=== PATIENT | male | born 1945 | race Caucasian/White ===

== ENCOUNTER 2021-12-10 07:34 | Outpatient (CLI) | payer MEDICARE, SELFPAY ==
--- NOTE | 2021-12-10 | EST_ITS ---
Patient Info Name: Sam Gerber Age: 76 years : 1945 Gender: Male Ht: 65 in Wt: 198 lbs BSA: 2.06 m2 HR: 57 bpm BP: 146 / 81 mmHg Heart Rhythm: Sinus Rhythm Exam Date: 12/10/2021 8:44 AM Exam Location: [facility] Stress Patient Status: Outpatient Admit Date: 12/10/2021 Staff Ordering Physician: Abdelrahman Sullivan APRN Attending Provider: Abdelrahman Sullivan APRN Exercise Technologist: Arabella Madrigal CT Exercise Physician: Maxx Browne DO Exam Type: CA stress mathieu w NM Study Info Indications R07.9 - Chest pain, unspecified A regadenoson stress test was performed. Summary 1. 1. Negative lexiscan stress test for ischemic ST changes by ECG criteria. 2. 2. Baseline hypertension. 3. 3. Nuclear scan to follow and will be reported separately. Please correlate with it. 4. 4. Patient informed of the above results. Protocol: Lexiscan Stress ECG Details Stage: REST Duration (min): 0 min : 54 sec HR (bpm): 56 SBP (mmHg): 146 DBP (mmHg): 81 Stage: REST Duration (min): 8 min : 41 sec HR (bpm): 55 SBP (mmHg): 146 DBP (mmHg): 81 Stage: STAGE 1 Duration (min): 1 min : 0 sec HR (bpm): 69 SBP (mmHg): 151 DBP (mmHg): 85 Stage: RECOVERY Duration (min): 1 min : 0 sec HR (bpm): 77 SBP (mmHg): 151 DBP (mmHg): 85 Stage: RECOVERY Duration (min): 2 min : 0 sec HR (bpm): 73 SBP (mmHg): 151 DBP (mmHg): 85 Stage: RECOVERY Duration (min): 3 min : 0 sec HR (bpm): 71 SBP (mmHg): 144 DBP (mmHg): 80 Stage: RECOVERY Duration (min): 3 min : 2 sec HR (bpm): 70 SBP (mmHg): 144 DBP (mmHg): 80 Rest HR: 55 bpm Peak HR: 81 bpm Rest Sys BP: 146 mmHg Peak Sys BP: 151 mmHg Max Pred HR: 146 bpm % Max Pred HR: 55 % Target HR: 124 bpm Max RPP: 12,231 bpm*mmHg Termination Reason: Completed protocol Cardiac Symptoms: Shortness of breath Total Time: 1 min : 0 sec Rest Jacobs BP: 81 mmHg Peak Jacobs BP: 85 mmHg Total Dose: 0.4 mg Resting ECG Sinus rhythm, borderline T wave in anterolat/high lat leads. Stress ECG No ST changes. Arrhythmias None. Report Signatures
--- NOTE | ~2021-12-10 | NM_ITS ---
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 The patient was infused intravenously with Lexiscan (regadenoson). Then, 33.7 mCi Tc99m tetrofosmin (Myoview) was administered intravenously, and stress images were obtained. Data was sanju nstructed into short axis and horizontal and vertical long axis SPECT images. Gated SPECT images were also obtained. COMPARISON: None. FINDINGS: There is moderate sized reversible perfusion abnormality of the anterior, septal and apical duron, consistent with ischemia. There is no segmental wall motion abnormality. Left ventricular e jection fraction measures 78%. IMPRESSION: 1. Moderate sized reversible perfusion abnormality of the anterior, septal and apical duron of the le ft ventricle, consistent with ischemia.. 2. Normal left ventricular ejection fraction measuring 78%. Reviewed, dictated and finalized at location B. IZE MACHINE OPERATOR IMPRESSION: 1. Moderate sized reversible perfusion abnormality of the anterior, septal and apical duron of the left ventricle, consistent with ischemia.. 2. Normal left ventricular ejection fraction measuring 78%.
== END 2021-12-10 07:35 | disposition home or self-care (01) ==
LOC: ANHCARD 07:41
PROVIDERS: PCP Internal Medicine; Visit Provider Nurse Practitioner
DX: R07.9 Chest pain, unspecified (principal); R94.39 Abnormal result of other cardiovascular function study
CPT/HCPCS: 78452; 93017; A9502; J2785

== ENCOUNTER → 2022-01-12 02:03 | Outpatient (CLI) | payer MEDICARE, SELFPAY ==
[2022-01-12 11:49] LABS: SARS-CoV-2 RNA PCR Negative
== END ==
PROVIDERS: PCP Internal Medicine; Visit Provider Internal Medicine Cardiovascular Disease
DX: Z01.812 Encounter for preprocedural laboratory examination (principal); Z20.822 Contact with and (suspected) exposure to COVID-19
CPT/HCPCS: C9803; U0003; U0005

== ENCOUNTER 2022-01-15 01:29 | Day surgery (SDC) | payer MEDICARE, SELFPAY ==
[2022-01-14 15:34] VITALS: BMI 32.0
[2022-01-15] VITALS (9 sets, daily range): BP systolic 127–148; BP diastolic 60–77; PULSE 46–61; RESP 12–22; TEMP 36.4; O2SAT 97–99; BMI 30.9
[2022-01-15] MEDS: SODIUM CHLORIDE 0.9% IV 500 ML 100 ML IV CONT (08:20)
[2022-01-15 08:36] LABS: Basophils Absolute Auto 0.1 K/mm3 (0.0-0.1); Basophils Percent Auto 1.3 % (0.2-1.2); Eosinophils Absolute Auto 0.6 K/mm3 (0-0.3); Eosinophils Percent Auto 6.5 % (0-4.4); Hematocrit 47.8 % (42.0-52.0); Hemoglobin 16.2 g/dL (14.0-18.0); Immature Granulocyte Absolute 0.03 K/mm3 (0.00-0.031); Immature Granulocyte Percent A 0.3 % (0-0.5); Lymphocytes Absolute Auto 2.49 K/mm3 (0.9-3.2); Mean Corpuscular HGB Conc 33.9 g/dl (32-36); Mean Corpuscular Hemoglobin 31.8 pg (26-34); Mean Corpuscular Volume 93.9 fl (80-100); Mean Platelet Volume 11.5 fl (7.4-10.4); Monocytes Absolute Auto 0.7 K/mm3 (0.1-0.6); Monocytes Percent Auto 7.5 % (2.6-8.5); Neutrophils Absolute Auto 5.6 K/mm3 (1.3-6.7); Neutrophils Percent Auto 58.4 % (45.5-73.1); Platelet Count Result 251 k/mm3 (150-375); Red Blood Count 5.09 M/mm3 (4.6-6.20); Red Cell Distribution Width 11.9 % (11.5-14.5); White Blood Count 9.6 K/mm3 (4.5-10.0)
[2022-01-15 08:45] LABS: Prothrombin Time 13.1 Seconds (11.1-14.7)
[2022-01-15 08:48] LABS: Anion Gap 13 mmol/L (8-16); Blood Urea Nitrogen 14 mg/dL (9-20); Calcium 9.1 mg/dL (8.4-10.2); Carbon Dioxide 23 mmol/L (22-30); Chloride 105 mmol/L (98-107); Estimated CRCL calculation 50 ml/min; Estimated Glomerular Filt Rate 59; Glucose 114 mg/dL (65-110); Sodium 141 mmol/L (137-145)
--- NOTE | 2022-01-15 09:25 | WPDHPUPDATE1 ---
History and Physical Update Update Date/Time: 01/15/22 09:25 History and Physical has been reviewed, including an updated exam of the patient. There are NO changes in the patient's condition. Risks, benefits, and alternatives have been discussed and questions answered. Patient agrees to proceed with procedure.
--- NOTE | 2022-01-15 09:25 | WPDMODSED ---
Moderate Sedation Note-Pt Data Patient Data Allergies Allergy/AdvReac Type Severity Reaction Status Date / Time No Known Allergies Allergy Verified 01/14/22 16:11 Home Medications Medication Instructions Recorded Confirmed Type aspirin 81 mg tablet,delayed 81 mg PO DAILY 11/20/20 01/15/22 History release atorvastatin 20 mg tablet See Rx Instructions .ROUTE 01/12/22 01/15/22 Rx .COMPLEX #90 tablet irbesartan 300 mg tablet See Rx Instructions .ROUTE 01/12/22 01/15/22 Rx .COMPLEX #90 tablet levetiracetam 500 mg tablet See Rx Instructions .ROUTE 01/12/22 01/15/22 Rx .COMPLEX #180 tablet metformin 500 mg tablet See Rx Instructions .ROUTE 01/12/22 01/15/22 Rx .COMPLEX #180 tablet verapamil 180 mg tablet,extended See Rx Instructions .ROUTE 01/12/22 01/15/22 Rx release .COMPLEX #90 tablet Current Medications: Active Medications Sodium Chloride (Normal Saline Iv) 500 mls @ 100 mls/hr IV CONT .Q5H ADRIAN Last Admin: 01/15/22 08:20 Dose: 100 mls/hr Documented by: Sedation/Anesthesia: No previous sedation/anesthesia problems (including family history). [facility] Past Medical History Medical History Essential hypertension Hx of seizure disorder Hyperkalemia Mixed hyperlipidemia Olecranon bursitis, right elbow Type 2 diabetes mellitus without complication, without long-term current use of insulin Surgical History Surgical History History of appendectomy Family History Family History Father Family history of suicide Family history of heart disease in male family member before age 55 Mother Family history of heart disease in male family member before age 55 Patient's mother is Social History Social History Smoking packs per day: 2 Smoking cigarettes per day: 40.0 Years smoked: 15 Smoking pack-years: 30.00 Tobacco type: cigarettes Second hand tobacco smoke exposure: No Smoking end date: 11/15/81 Alcohol intake: current Alcohol use details: a beer every couple weeks Mod Sed Physical Exam Physical Exam Pre Procedural Exam: Normal: Appearance, Eyes, Ears, Nose, Neck, Throat, Airway, Lungs, Heart Size, Heart Rate, Heart Rhythm, Neuro Exam, Abdomen, Liver, Kidneys, Spleen, Breasts, Genitalia, Extremities and Skin Hours since solid foods: 8 Hours since liquid intake: 8 Mallampati Classification: class 1 Internal Medicine - PN: Obj Da Vital Signs Vital Signs: Vital Signs - 24 hr 01/15/22 08:00 Temperature 36.4 C L Pulse Rate 61 Respiratory Rate 22 H Blood Pressure 148/71 H Pulse Oximetry 99 Meds/Results Medications: Active Medications Generic Name Dose Route Start Last Admin Trade Name Freq PRN Reason Stop Dose Admin Sodium Chloride 500 mls @ 100 mls/hr 01/15/22 07:00 01/15/22 08:20 Normal Saline Iv IV CONT 100 mls/hr .Q5H ADRIAN Administration Labs CBC & Chem 7: 01/15/22 07:55 01/15/22 07:55 Labs: Laboratory Results - last 24 hr 01/15/22 01/15/22 01/15/22 07:55 07:55 07:55 WBC 9.6 RBC 5.09 Hgb 16.2 Hct 47.8 MCV 93.9 MCH 31.8 MCHC 33.9 RDW 11.9 Plt Count 251 MPV 11.5 H Immature Gran % (Auto) 0.3 Neut % (Auto) 58.4 Lymph % (Auto) 26.0 [place] % (Auto) 7.5 Eos % (Auto) 6.5 H Baso % (Auto) 1.3 H Lymph # (Auto) 2.49 [place] # (Auto) 0.7 H Eos # (Auto) 0.6 H Baso # (Auto) 0.1 Abs Immat Gran (auto) 0.03 Absolute Neuts (auto) 5.6 Absolute Nucleated RBC 0.0 Nucleated RBC % 0.0 PT 13.1 INR 1.0 Sodium 141 Potassium 4.0 Chloride 105 Carbon Dioxide 23 Anion Gap 13 BUN 14 Creatinine 1.20 Estim Creat Clear Calc 50 Estimated GFR 59 Glucose 114 H Calcium 9.1 ASA Classif
--- NOTE | 2022-01-15 09:58 | P.PCNCC_ITS ---
Cardiac Cath Procedure Note Date of procedure:: 01/15/22 Performing physician:: Lin Nelson MD date of service 01/15/2022 Indication:: abnormal stress test and chest pain Brief clinical history:: this is a 76-year-old patient with past medical history of hypertension, diabetes and CVA who has been experiencing exertional chest pain. Underwent stress test that shows moderate area of ischemia in the anterior wall. He is here to rule out CAD. Procedure Procedure performed:: 1-Moderate sedation that started at 9:13 a.m.and ended at 9:52 a.m. with total duration 39 minutes using 3mg of Versed and 75mcg fentanyl. The registered nurse was augustine duff 2-Selective left and right coronary angiogram. 3-Left heart catheterization with measurement of LVEDP and measurement of gradient across aortic valve. 4- LV angiogram. 4-Right common femoral arterial angiogram. 5-Deployment of 6 Albanian Angio-Seal. Sedation/Medication given:: Moderate sedation. Access site:: Right common femoral artery. Estimated blood loss:: 10cc Procedure note:: After informed consent patient was brought in to [facility] with the was draped and prepped in usual manner. Moderate sedation was given and the right groin was infiltrated using 1% lidocaine. Five Albanian sheath was obtained using micropuncture needle and the modified Seldinger technique. Selective left coronary angiogram was done using JL4 catheter with the tip of the catheter placed in the left main coronary artery. Selective right coronary angiogram was done using JR4 catheter with the tip of the catheter placed to the right coronary artery. After that 5 Albanian pigtail catheter was advanced across the aortic valve into the left ventricle with measurement of LVEDP and measurement of gradient across aortic valve. LV angiogram was done as well.Right common femoral arterial angiogram was done. Findings:: 1- left coronary artery is a large artery that divides into large LAD, large circumflex arter And medium-size ramus. Left main has distal 20%. 2- left anterior descending artery is a large artery that runs and wraps around the apex. It is calcified throughout. It is totally occluded proximally with left to left collaterals. 3- leftcircumflex artery is a large artery And Mid 70-80% focal lesion. 3- ramus intermedius has diffuse 60% proximally. 4- right coronary artery is Large artery and dominant and has 50% proximally. Right PDA 50%. 5- LVEDP was 18 mm Hg and no gradient across aortic valve. aortic root appears to be generous in size 6- opening arterial pressure was 140/80 and closing pressure was 120/70 7- right femoral artery angiogram shows no significant disease in the right common femoral artery. Conclusion:: 1- totally occluded LAD with [id number] collaterals. 2- High-grade stenosis involving mid left circumflex artery and ostial ramus. 3- normal LV systolic function. 4- aortic root appears to be generous in size Assessment and Plan Additional Plan assess for CABG
--- NOTE | 2022-01-15 11:20 | SUR.PHASEII ---
1110 Dr. Nelson phlebotomist medical lab assistant at [facility] discussing cath findings and recommendations with patient and his daughter Danica who is an RN.
== END 2022-01-15 13:30 | disposition home or self-care (01) ==
PROVIDERS: PCP Internal Medicine; Visit Provider Internal Medicine Cardiovascular Disease
PROC: 4A023N7 Measurement of Cardiac Sampling and Pressure, Left Heart, Percutaneous Approach (ICD-10-PCS; CPT 93452; principal; 2022-01-15 08:30)
DX: I25.10 Atherosclerotic heart disease of native coronary artery without angina pectoris (principal); R94.39 Abnormal result of other cardiovascular function study; R07.9 Chest pain, unspecified; I10 Essential (primary) hypertension; E11.9 Type 2 diabetes mellitus without complications; G40.909 Epilepsy, unspecified, not intractable, without status epilepticus; E78.2 Mixed hyperlipidemia; Z86.73 Personal history of transient ischemic attack (TIA), and cerebral infarction without residual deficits; Z79.82 Long term (current) use of aspirin; Z79.84 Long term (current) use of oral hypoglycemic drugs; Z87.891 Personal history of nicotine dependence
CPT/HCPCS: 36415; 80048; 85025; 85610; 93458; A9270; C1760; C1887; C1894; C9803; G0269; J1644; J2250; J3010; J7040; U0003; U0005

== ENCOUNTER 2022-06-15 09:30 | Outpatient (RCR) | payer MEDICARE, SELFPAY ==
[2022-03-23 11:10] LABS: Glucose Point of Care 81 mg/dl (65-105)
[2022-03-23 11:57] LABS: Glucose Point of Care 107 mg/dl (65-105)
[2022-03-25 11:28] LABS: Glucose Point of Care 86 mg/dl (65-105)
[2022-03-25 12:06] LABS: Glucose Point of Care 91 mg/dl (65-105)
== END 2022-06-15 13:28 | disposition home or self-care (01) ==
PROVIDERS: PCP Internal Medicine; Visit Provider Internal Medicine Cardiovascular Disease
DX: Z95.1 Presence of aortocoronary bypass graft (principal)
CPT/HCPCS: 82948; 93798

== ENCOUNTER 2023-05-01 08:53 | Outpatient (CLI) | payer MEDICARE, SELFPAY ==
[2023-05-01 09:31] LABS: Hemoglobin A1C 5.9 % (<5.7)
[2023-05-01 09:37] LABS: Alanine Aminotransferase 62 U/L (16-63); Alkaline Phosphatase 85 U/L (46-116); Anion Gap 7 mmol/L (8-16); Aspartate Amino Transferase 38 U/L (15-37); Bilirubin,Total 1.1 mg/dL (0.00-1.00); Blood Urea Nitrogen 21 mg/dL (7-18); Calcium 9.2 mg/dL (8.5-10.1); Carbon Dioxide 28 mmol/L (21-32); Chloride 104 mmol/L (98-108); Cholesterol 133 mg/dL (0-200); Estimated Glomerular Filt Rate 52; Glucose 110 mg/dL (70-99); HDL Direct 40 mg/dL (40-60); LDL Cholesterol Calculated 65 mg/dL (<130); Osmolality Calculated 292 mOsm/kg (285-295); Potassium 4.7 mmol/L (3.5-5.1); Sodium 139 mmol/L (136-145); Total Protein 7.4 g/dL (6.4-8.2); Triglycerides 140 mg/dL (0-150)
[2023-05-05 07:03] LABS: Levetiracetam Keppra 13.7 mcg/mL (6.0-46.0)
== END 2023-05-01 08:54 | disposition home or self-care (01) ==
LOC: CHSLAB 08:54
PROVIDERS: PCP Nurse Practitioner; Visit Provider Nurse Practitioner
DX: E11.9 Type 2 diabetes mellitus without complications (principal); E78.5 Hyperlipidemia, unspecified; Z86.69 Personal history of other diseases of the nervous system and sense organs
CPT/HCPCS: 36415; 80053; 80061; 80177; 83036

== ENCOUNTER 2023-06-16 10:07 | Outpatient (CLI) | payer MEDICARE, SELFPAY ==
[2023-06-16 10:29] LABS: Basophils Absolute Auto 0.07 K/mm3 (0.00-0.10); Basophils Percent Auto 0.9 % (0.0-1.0); Eosinophils Absolute Auto 0.39 K/mm3 (0.02-0.50); Eosinophils Percent Auto 5.1 % (1.0-6.0); Immature Granulocyte Absolute 0.03 K/mm3 (0.00-0.00); Immature Granulocyte Percent A 0.4 % (0.0-0.0); Lymphocytes Absolute Auto 1.86 K/mm3 (1.10-4.50); Lymphocytes Percent Auto 24.2 % (18.0-42.0); Mean Corpuscular HGB Conc 34.1 g/dL (32.0-36.0); Mean Corpuscular Hemoglobin 32.8 pg (27.0-31.0); Mean Corpuscular Volume 96.3 fL (78.0-102.0); Mean Platelet Volume 11.1 fl (8.7-11.0); Monocytes Absolute Auto 0.61 K/mm3 (0.10-0.90); Monocytes Percent Auto 7.9 % (2.0-11.0); Neutrophils Absolute Auto 4.7 K/mm3 (1.7-7.2); Neutrophils Percent Auto 61.5 % (50.0-70.0); Platelet Count Result 201 K/mm3 (150-420); Red Blood Count 4.57 M/mm3 (4.70-6.10); Red Cell Distribution Width 12.4 % (11.6-14.4); White Blood Count 7.7 K/mm3 (4.8-10.8)
[2023-06-16 11:31] LABS: Ferritin 147 ng/mL (26-388); Free T4 Free Thyroxine 0.85 ng/dL (0.76-1.46); Iron 133 ug/dL (65-175); Percent Iron Saturation 43 % (12-57); Vitamin B12 234 pg/mL (193-986)
[2023-06-16 16:48] LABS: Free T3 1.95 pg/mL (2.18-3.98)
== END 2023-06-16 10:08 | disposition home or self-care (01) ==
LOC: CHSLAB 10:09
PROVIDERS: PCP Nurse Practitioner Family; Visit Provider Nurse Practitioner Family
DX: D64.9 Anemia, unspecified (principal); R53.83 Other fatigue; Z86.69 Personal history of other diseases of the nervous system and sense organs; R94.6 Abnormal results of thyroid function studies; N18.1 Chronic kidney disease, stage 1; I10 Essential (primary) hypertension; E78.2 Mixed hyperlipidemia; E11.9 Type 2 diabetes mellitus without complications; Z12.11 Encounter for screening for malignant neoplasm of colon
CPT/HCPCS: 36415; 82607; 82728; 83540; 83550; 84439; 84443; 84481; 85025

== ENCOUNTER 2023-09-11 08:29 | Outpatient (CLI) | payer MEDICARE, SELFPAY ==
[2023-09-11 09:15] LABS: Thyroid Stimulating Hormone 2.41 uIU/mL (0.36-3.74)
[2023-09-16 03:52] LABS: Thyroid Peroxidase Antibodies 4 IU/mL (<9)
== END 2023-09-11 08:30 | disposition home or self-care (01) ==
PROVIDERS: PCP Nurse Practitioner Family; Visit Provider Nurse Practitioner Family
DX: R53.83 Other fatigue (principal); R94.6 Abnormal results of thyroid function studies
CPT/HCPCS: 36415; 84439; 84443; 86376

== ENCOUNTER 2023-12-17 09:12 | Outpatient (CLI) | payer MEDICARE, SELFPAY ==
[2023-12-17 09:45] LABS: MALB Creatinine Ratio 33.4 mg/g (0-30)
[2023-12-17 09:47] LABS: Hemoglobin A1C 5.7 % (<5.7)
[2023-12-17 10:25] LABS: Alanine Aminotransferase 56 U/L (16-63); Albumin Level 3.8 g/dL (3.4-5.0); Alkaline Phosphatase 82 U/L (46-116); Anion Gap 9 mmol/L (8-16); Aspartate Amino Transferase 34 U/L (15-37); Bilirubin,Total 1.3 mg/dL (0.00-1.00); Blood Urea Nitrogen 14 mg/dL (7-18); Calcium 8.8 mg/dL (8.5-10.1); Carbon Dioxide 25 mmol/L (21-32); Chloride 102 mmol/L (98-108); Cholesterol 129 mg/dL (0-200); Estimated Glomerular Filt Rate 55; Glucose 104 mg/dL (70-99); HDL Direct 47 mg/dL (40-60); LDL Cholesterol Calculated 59 mg/dL (<130); Osmolality Calculated 282 mOsm/kg (285-295); Potassium 4.4 mmol/L (3.5-5.1); Prostate Specific Antigen 2.1 ng/mL (< OR = 4.0); Sodium 136 mmol/L (136-145); Total Protein 7.4 g/dL (6.4-8.2); Triglycerides 114 mg/dL (0-150)
== END 2023-12-17 09:13 | disposition home or self-care (01) ==
LOC: CHSLAB 09:14
PROVIDERS: PCP Nurse Practitioner Family; Visit Provider Nurse Practitioner Family
DX: R53.83 Other fatigue (principal); Z12.5 Encounter for screening for malignant neoplasm of prostate; Z86.69 Personal history of other diseases of the nervous system and sense organs; R94.6 Abnormal results of thyroid function studies; N18.1 Chronic kidney disease, stage 1; I10 Essential (primary) hypertension; E78.2 Mixed hyperlipidemia; E11.9 Type 2 diabetes mellitus without complications
CPT/HCPCS: 36415; 80053; 80061; 82043; 83036; 84153; G0103

== ENCOUNTER 2024-06-24 08:27 | Outpatient (CLI) | payer MEDICARE, SELFPAY ==
[2024-06-24 11:12] LABS: Basophils Absolute Auto 0.07 K/mm3 (0.00-0.10); Basophils Percent Auto 0.9 % (0.0-1.0); Eosinophils Absolute Auto 0.44 K/mm3 (0.02-0.50); Eosinophils Percent Auto 5.9 % (1.0-6.0); Hematocrit 44.4 % (37.0-46.0); Hemoglobin 15.3 g/dL (12.4-15.3); Immature Granulocyte Absolute 0.02 K/mm3 (0.00-0.00); Immature Granulocyte Percent A 0.3 % (0.0-0.0); Lymphocytes Absolute Auto 1.76 K/mm3 (1.10-4.50); Lymphocytes Percent Auto 23.5 % (18.0-42.0); Mean Corpuscular HGB Conc 34.5 g/dL (32-36); Mean Corpuscular Hemoglobin 32.3 pg (27.0-31.0); Mean Corpuscular Volume 93.9 fL (78.0-102.0); Mean Platelet Volume 12.2 fl (8.7-11.0); Monocytes Absolute Auto 0.57 K/mm3 (0.10-0.90); Monocytes Percent Auto 7.6 % (2.0-11.0); Neutrophils Absolute Auto 4.62 K/mm3 (1.70-7.20); Neutrophils Percent Auto 61.8 % (50.0-70.0); Platelet Count Result 196 K/mm3 (150-420); Red Blood Count 4.73 M/mm3 (4.70-6.10); Red Cell Distribution Width 11.9 % (11.6-14.4); White Blood Count 7.5 K/mm3 (4.8-10.8)
[2024-06-24 13:27] LABS: Alanine Aminotransferase 47 U/L (16-63); Albumin Level 3.8 g/dL (3.4-5.0); Alkaline Phosphatase 78 U/L (46-116); Anion Gap 11 mmol/L (4-12); Aspartate Amino Transferase 31 U/L (15-37); Bilirubin,Total 0.8 mg/dL (0.00-1.00); Blood Urea Nitrogen 15 mg/dL (7-18); Calcium 9.3 mg/dL (8.5-10.1); Carbon Dioxide 25 mmol/L (21-32); Chloride 106 mmol/L (98-108); Estimated Glomerular Filt Rate 49; Glucose 104 mg/dL (70-99); Osmolality Calculated 294 mOsm/kg (285-295); Potassium 4.3 mmol/L (3.5-5.1); Sodium 142 mmol/L (136-145); Total Protein 7.5 g/dL (6.4-8.2)
[2024-06-24 13:34] LABS: Hemoglobin A1C 6.4 % (<5.7)
== END 2024-06-24 08:28 | disposition home or self-care (01) ==
PROVIDERS: PCP Nurse Practitioner Family; Visit Provider Nurse Practitioner Family
DX: E11.3299 Type 2 diabetes mellitus with mild nonproliferative diabetic retinopathy without macular edema, unspecified eye (principal); Z86.69 Personal history of other diseases of the nervous system and sense organs; I10 Essential (primary) hypertension; E11.9 Type 2 diabetes mellitus without complications
CPT/HCPCS: 36415; 80053; 83036; 85025

== ENCOUNTER 2024-12-16 08:18 | Outpatient (CLI) | payer MEDICARE, SELFPAY ==
--- OUTSIDE RECORDS SUMMARY | 2024-12-16 08:24 | XMS_ITS | Clinical Summary ---
Author Organization [facility] Address [address] [place] [address]. [place] [address] [place] [address] Care Team Providers Care Inspection Machine Tender Name Role Phone Unavailable Primary Care Provider Unavailabl e Social History Tobacco Use Types Packs/Day Years Used Date Smoking Tobacco: Never Assessed Sex and Gender Information Value Date Recorded Sex Assigned at Not on file Legal Sex Male 5:10 PM CDT Gender Identity Not on file Sexual Orientation Not on file Plan of Treatment Health Maintenance Due Date Last Done Comments Hepatitis C 1963 DTaP, Tdap and Td Vaccines ( 1 - Tdap) 1966 Zoster Vaccines (1 of 2) 1997 Pneumococcal Vaccine: 65+ Ye ars (1 of 1 - PCV) 2012 RSV Immunization or 60+ Years (1 - 1-dose 75+ series) 2022 COVID-19 Vaccine ( - 2023-2 5 season) 2024 Influenza Adult (#1) 2024 Meningococcal B Vaccine Aged Out No l onger eligible based on patient's age to complete this topic Meningococcal Vaccine Aged Out No marco chris eligible based on patient's age to complete this topic RSV Immunizations Under 20 Months Aged Out No longer eligible based on patient's age to complete this topic
--- OUTSIDE RECORDS SUMMARY | 2024-12-16 08:24 | XMS_ITS | Referral Summary ---
Author Organization [facility] [address] Address [address] [place] [address] Care Team Providers Care Packer Dried Beef Name Role Phone Delbert Ortega Primary Care Provider [phone] Lin Nelson MD Unavailable [phone] Allergies No known active allergies Medications levETIRAcetam (KEPPRA) 500 mg tablet Take 1 tablet (500 mg total) by mouth 2 (two) times a day Active metFORMIN (GLUCOPHAGE) 500 mg tablet Take 1 tablet (500 mg total) by mouth 2 (two) times a day with meals Active blood glucose diagnostic strip Act tere aspirin 81 mg enteric coated tabletIndications :Hx of CABG,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 angina pectoris Take 1 tablet (81 mg total) by mouth daily 30 tablet 11 07/30/2022 Active atorvastatin (LIPITOR) 40 mg tabletIndications :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 angina pectoris TAKE 1 TABLET BY MOUTH DAILY 100 tablet 2 04/15/2023 Active lisinopriL (PRINIVIL,ZESTRIL ) 10 mg tabletIndications :Essential hypertension Take 1 tablet (10 mg total) by mouth daily 90 tablet 3 02/07/2024 02/07/20 25 Active metoprolol tartrate (LOPRESSOR) 25 mg immediate release tabletIndications :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 angina pectoris TAKE ONE-HALF TABLET BY MOUTH TWICE DAILY 100 tablet 1 09/11/2024 Active Active Problems Problem Noted Date Diagnosed Date Dyslipidemia 02/07/2024 Hx of CABG 03/17/2022 CAD in mohegan artery 02/09/2022 Coronary artery disease invo lving mohegan coronary artery of mohegan heart without angina pectoris 01/28/2022 Overview (01/28/2022): Added automatically from request for surgery [id number] Essential hypertension 12/25/2021 Resolved Problems Problem Noted Date Diagnosed Date Resolved Date Aftercare following surgery 03/17/2022 01/25/2023 Stable angina 12/25/2021 07/30/2022 Abnormal stress test 12/25/2021 022 Social History Tobacco Use Types Packs/Day Years Used Date Smoking Tobacco: Former Cigarettes 1 20 0 12/25/1963 - 12/25/1983 Smokeless Tobacco: Current Chew Tobacco Cessation:Ready to Q uit: Not Asked; Counseling Given: Not Answered Social Connection and Isolat ion Panel [NHANES] Answer Date Recorded In a typical week, how many times do you talk on the phone with family, friends, or neighbors? More than three times a week 02/11/2022 How often do you get togethe r with friends or relatives? More than three times a week 02/11/2022 How often do you attend chur ch or synagogue services? Never 02/11/2022 Do you belong to any clubs o r organizations such as orthodox groups, unions, fraternal or athletic groups, or school groups? No 02/11/2022 How often do you attend meet ings of the clubs or organizations you belong to? Never 02/11/2022 Are you , , di vorced, , never , or living with a partner? 02/11/2022 AUDIT-C Answer Date Recorded Q1: How often do you have a drink containing alc ohol? Monthly or less 12/25/2021 Q2: How many drinks containi ng alcohol do you have on a typical day when you are drinking? 1 or 2 12/25/2021 Frequency of Binge Drinking Not on file 12/16 Overall Financial Resource Strain (CARDIA) Answe r Date Recorded How hard is it for you to pa y for the very basics like food, housing, medical care, and heating? Not very hard 02/11/2022 PRAPARE - Transportation Answer Date Re corded In the past 12 months, has l ack of transportation kept you from medical appointments or from getting medications? No 01/15 In the past 12 months, has l ack of transportation kept you from meetings, work, or from getting things needed for daily living? 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 Gender Identity Not on file Sexual Orientation Not on file Last Filed Vital Signs Vital Sign Reading Time Taken Comments Blood Pressure 152/76 02/07/2024 12:04 PM CDT Pulse 58 02/07/2024 12:04 PM CDT Temperature 36 ??C (96.8 ??F) 02/26/2022 12:00 PM CDT Respiratory Rate 18 03/17/2022 9:15 AM CDT Oxygen Saturation 98% 02/07/2024 12:04 PM CDT Inhaled Oxygen Concentration - - Weight 84.8 kg (187 lb) 02/07/2024 12:04 PM CDT Height 167.6 cm (5' 6 ) 02/07/2024 12:04 PM CDT Body Mass Index 30.18 02/07/2024 12:04 PM CDT Plan of Treatment Not on file Insurance [facility] MDCR HMO REF MEDICARE SOLUTIONS HMO REF [address] HMO REF Advance Directives For more information, please contact: [phone] * Full Code (Latest Code Status on File) Date Activated Date Inactivated Comments 02/09/2022 11:40 AM 02/14/2022 10:36 PM Care Teams Packer Dried Beef Relationship Specialty Start Date End Date Oli OrtegaeDO PCP - General Internal Medicine 12/17/21 Lin Nelson MD [address] [address] Referring Physician Interventional Cardiology 01/22/22
--- OUTSIDE RECORDS SUMMARY | 2024-12-16 08:24 | XMS_ITS | Clinical Summary ---
Author Organization [facility] [address] Address [address] [place] [address] Care Team Providers Care Lead Cook Name Role Phone Delbert Ortega Primary Care Provider Lin Nelson MD Unavailable [phone] Allergies No known active allergies Medications levETIRAcetam [...] tabletIndications :Hx of CABG,Coronary artery disease involving chev[place] coronary artery of [place] heart without angina pectoris Take 1 tablet (81 mg total) by mouth daily 30 tablet 11 07/30/2022 Active atorvastatin (LIPITOR) 40 mg tabletIndications :Coronary artery disease involving [place] coronary artery of [place] heart without angina pectoris TAKE 1 TABLET BY MOUTH DAILY 100 tablet 2 04/15/2023 Active lisinopriL (PRINIVIL,ZESTRIL ) 10 mg tabletIndications :Essential hypertension Take 1 tablet (10 mg total) by mouth daily 90 tablet 3 02/07/2024 02/07/20 25 Active metoprolol tartrate (LOPRESSOR) 25 mg immediate release tabletIndications :Coronary artery disease involving chev[place] coronary artery of [place] heart without angina pectoris TAKE ONE-HALF TABLET BY MOUTH TWICE DAILY 100 tablet 1 09/11/2024 Active Active Problems Problem Noted Date Diagnosed Date Dyslipidemia 02/07/2024 Hx of CABG 03/17/2022 CAD in [place] artery 02/09/2022 Coronary artery disease invo lving che[place] coronary artery of [place] heart without angina pectoris 01/28/2022 Overview (01/28/2022): Added automatically from request for surgery [id number] Essential hypertension 12/25/2021 Resolved Problems Problem Noted Date Diagnosed Date Resolved Date Aftercare following surgery 03/17/2022 01/25/2023 Stable angina 12/25/2021 07/30/2022 Abnormal stress test 12/25/2021 022 Surgical History Surgery Date Site/Laterality Comments APPENDECTOMY CORONARY ARTERY BYPASS GRAFT Medical History Medical History Date Comments Hypertension Diabetes mellitus (HCC) Seizure (HCC) Stroke (HCC) Coronary artery disease Family History Medical History Relation Name Comments Heart disease Brother 1 Heart attack Brother 2 half-brother Heart disease Brother 2 half-brother Suicide Completion Father Heart disease Mother Relation Name Status Comments Brother 1 Alive Brother 2 half-brother Father Mother Sister Social History Tobacco Use Types Packs/Day Years [...] often do you attend chur ch or sabianism services? 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 Gender Identity Not on file Sexual Orientation Not on file Obstetrics History Last Filed Vital Signs Vital Sign Reading [...] 02/07/2024 12:04 PM CDT Plan of Treatment Health Maintenance Due Date Last Done Comments Depression Screening 1945 Hepatitis C Screening 1945 DTaP/Tdap/Td Vaccine (1 - Tdap) 1958 Hepatitis B Screening 1965 Zoster Vaccine (1 of 2) 1997 Abdominal Aortic Aneurysm (AAA) Screen 2012 Pneumococcal vaccine 65+ (1 of 1 - PCV) 2012 Well Visit 65+ 2012 Fall Risk Assessment 02/14/2023 02/14/2022 Influenza Vaccine (#1) 2024 [facility]IC[facility] SOLUTIONS [facility] MDCR HMO REF Advance Directives For more information, please contact: [phone] * Full Code (Latest Code Status on File) Date Activated Date Inactivated Comments 02/09/2022 11:40 AM 02/14/2022 10:36 PM Care Teams Lead Cook Relationship Specialty Start Date End Date Delbert Ortega DO PCP - General Internal Medicine 12/17/21 Lin Nelson MD [address] [facility] [address] [address] Referring Physician Interventional Cardiology 01/22/22
[2024-12-16 08:33] LABS: Basophils Absolute Auto 0.07 K/mm3 (0.00-0.10); Basophils Percent Auto 0.8 % (0.0-1.0); Eosinophils Absolute Auto 0.49 K/mm3 (0.02-0.50); Eosinophils Percent Auto 5.5 % (1.0-6.0); Hematocrit 47.2 % (37.0-46.0); Hemoglobin 15.4 g/dL (12.4-15.3); Immature Granulocyte Absolute 0.03 K/mm3 (0.00-0.00); Immature Granulocyte Percent A 0.3 % (0.0-0.0); Lymphocytes Absolute Auto 1.97 K/mm3 (1.10-4.50); Lymphocytes Percent Auto 22.3 % (18.0-42.0); Mean Corpuscular HGB Conc 32.6 g/dL (32-36); Mean Corpuscular Hemoglobin 31.3 pg (27.0-31.0); Mean Corpuscular Volume 95.9 fL (78.0-102.0); Mean Platelet Volume 10.9 fl (8.7-11.0); Monocytes Absolute Auto 0.66 K/mm3 (0.10-0.90); Monocytes Percent Auto 7.5 % (2.0-11.0); Neutrophils Absolute Auto 5.61 K/mm3 (1.70-7.20); Neutrophils Percent Auto 63.6 % (50.0-70.0); Platelet Count Result 232 K/mm3 (150-420); Red Blood Count 4.92 M/mm3 (4.70-6.10); Red Cell Distribution Width 12.2 % (11.6-14.4); White Blood Count 8.8 K/mm3 (4.8-10.8)
[2024-12-16 08:49] LABS: Hemoglobin A1C 6.3 % (<5.7)
[2024-12-16 09:40] LABS: Alanine Aminotransferase 52 U/L (16-63); Alkaline Phosphatase 90 U/L (46-116); Anion Gap 9 mmol/L (4-12); Aspartate Amino Transferase 29 U/L (15-37); Blood Urea Nitrogen 14 mg/dL (7-18); Calcium 9.3 mg/dL (8.5-10.1); Carbon Dioxide 29 mmol/L (21-32); Chloride 106 mmol/L (98-108); Estimated Glomerular Filt Rate 48; Free T4 Free Thyroxine 0.85 ng/dL (0.76-1.46); Glucose 115 mg/dL (70-99); Osmolality Calculated 299 mOsm/kg (285-295); Potassium 4.8 mmol/L (3.5-5.1); Prostate Specific Antigen 2.6 ng/mL (< OR = 4.0); Sodium 144 mmol/L (136-145); Thyroid Stimulating Hormone 4.49 uIU/mL (0.36-3.74); Total Protein 7.3 g/dL (6.4-8.2)
== END 2024-12-16 08:19 | disposition home or self-care (01) ==
LOC: CHSLAB 08:22
PROVIDERS: PCP Nurse Practitioner Family; Visit Provider Nurse Practitioner Family
DX: E11.9 Type 2 diabetes mellitus without complications (principal); Z12.5 Encounter for screening for malignant neoplasm of prostate; E11.3299 Type 2 diabetes mellitus with mild nonproliferative diabetic retinopathy without macular edema, unspecified eye; Z86.69 Personal history of other diseases of the nervous system and sense organs; I10 Essential (primary) hypertension; E11.29 Type 2 diabetes mellitus with other diabetic kidney complication; R80.9 Proteinuria, unspecified; N18.31 Chronic kidney disease, stage 3a
CPT/HCPCS: 36415; 80053; 83036; 84153; 84439; 84443; 85025; G0103

== ENCOUNTER 2025-06-02 08:44 | Outpatient (CLI) | payer MEDICARE, SELFPAY ==
--- OUTSIDE RECORDS SUMMARY | 2025-06-02 08:47 | XMS_ITS | Referral Summary ---
Author Organization [facility] [address] [facility] [address] Address [address] [place] [address] Care Team Providers Care Carpenter Cradle And Dolly Name Role Phone Delbert Ortega DO Primary Care Provider [phone] Lin Nelson MD Unavailable [phone] Encounters Date Type Department Care Team Description 03/21/2025 Telephone [facility] Cardiology [address] [place] [address] Lin Nelson MD from Last 3 Months Allergies No known active allergies Medications levETIRAcetam (KEPPRA) 500 mg tablet Take 1 tablet (500 mg total) by mouth 2 (two) times a day Active metFORMIN (GLUCOPHAGE) 500 mg tablet Take 1 tablet (500 mg total) by mouth 2 (two) times a day with meals Active blood glucose diagnostic strip Act tere aspirin 81 mg enteric coated tabletIndication s:Hx of CABG,Coronary artery disease involving chickaloon coronary artery of chickaloon heart without angina pectoris Take 1 tablet (81 mg total) by mouth daily 30 tablet 11 2 Active atorvastatin (LIPITOR) 40 mg tabletIndication s:Coronary artery disease involving chickaloon coronary artery of chickal[place] heart without angina pectoris TAKE 1 TABLET BY MOUTH DAILY 100 tablet 2 3 Active Additional Information Patient taking differently: 20 mg oral Daily, Reported on 02/19/2025 lisinopriL (PRINIVIL,ZESTRI L) 10 mg tabletIndication s:Essential hypertension Take 1 tablet (10 mg total) by mouth daily 90 tablet 3 4 Active Additional Information Patient taking differently: 5 mgoral Daily, Reported on 02/19/2025 metoprolol tartrate (LOPRESSOR) 25 mg immediate release tabletIndication s:Coronary artery disease involving chickaloon coronary artery of chickaloon heart without angina pectoris TAKE ONE-HALF TABLET BY MOUTH TWICE DAILY 100 tablet 2 5 Active Active Problems Problem Noted Date Diagnosed Date Dyslipidemia 02/07/2024 Hx of CABG 03/17/2022 CAD in chickal[place] artery 02/09/2022 Coronary artery disease invo lving chickaloon coronary artery of chickaloon heart without angina pectoris 01/28/2022 Overview (01/28/2022): Added automatically from request for surgery [id number] Essential hypertension 12/25/2021 Resolved Problems Problem Noted [...] 02/11/2022 How often do you attend chur or temple services? 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 Gender Identity Not on file Sexual Orientation Not on file Last Filed Vital Signs Vital Sign Reading Time Taken Comments Blood Pressure 138/72 02/19/2025 11:29 AM CDT Pulse 56 02/19/2025 11:29 AM CDT Temperature 36 C (96.8 F) 02/26/2022 12:00 PM CDT Respiratory Rate 18 03/17/2022 9:15 AM CDT Oxygen Saturation 98% 02/19/2025 11:29 AM CDT Inhaled Oxygen Concentration - - Weight 87.5 kg (193 lb) 02/19/2025 11:29 AM CDT Height 167.6 cm (5' 6) 02/19/2025 11:29 AM CDT Body Mass Index 31.15 02/19/2025 11:29 AM CDT Plan of Treatment Not on file Insurance [facility] MDCR HMO REF [facility] MEDICARE ADVANTAGE [id number] [place], [place] [address]R HMO REF [place] [id number] H[address] REF Advance Directives For more information, please contact: [phone] * Full Code (Latest Code Status on File) Date Activated Date Inactivated Comments 02/09/2022 11:40 AM 02/14/2022 10:36 PM Care Teams Carpenter Cradle And Dolly Relationship Specialty Start Date End Date Delbert Ortega DO PCP - General Internal Medicine 12/17/21 Lin Nelson MD [address] [facility] [address] [place] [address] [place] [address] Referring Physician Interventional Cardiology 01/22/22
--- OUTSIDE RECORDS SUMMARY | 2025-06-02 08:47 | XMS_ITS | Clinical Summary ---
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 Take 1 tablet (81 mg total) by mouth daily 30 tablet 11 2 Active atorvastatin (LIPITOR) 40 mg tabletIndication s: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 TAKE 1 TABLET [...] immediate release tabletIndication s: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 TAKE ONE-HALF TABLET BY MOUTH TWICE DAILY 100 tablet 2 Active Active Problems Problem Noted Date Diagnosed Date Dyslipidemia 02/07/2024 Hx of CABG 03/17/2022 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 02/09/2022 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 01/28/2022 Overview (01/28/2022): Added automatically from request for surgery [id number] Essential hypertension 12/25/2021 Resolved Problems Problem Noted Date Diagnosed Date Resolved Date Aftercare following surgery 03/17/2022 01/25/2023 Stable angina 12/25/2021 07/30/2022 Abnormal stress test 12/25/2021 022 Encounters Date Type Department Care Team Description 03/21/2025 Telephone [facility] Cardiology [address] [place] [address] Lin Nelson MD from Last 3 Months Surgical History Surgery Date Site/Laterality Comments APPENDECTOMY [...] How often do you attend chur or rastafari services? 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 Gender Identity Not on file Sexual Orientation [...] 02/19/2025 11:29 AM CDT Plan of Treatment Health Maintenance Due Date Last Done Comments Depression Screening 1945 Hepatitis C Screening 1945 DTaP/Tdap/Td Vaccine (1 - Tdap) 1958 Hepatitis B Screening 1965 Pneumococcal vaccine 65+ (1 of 1 - PCV) 1997 Zoster Vaccine (1 of 2) 1997 Abdominal Aortic Aneurysm (AAA) Screen 2012 Well Visit 65+ 2012 Fall Risk Assessment 02/14/2023 02/14/2022 Influenza Vaccine (Season Ended) [id number] [place], [place] [address] HMO REF [facility] MEDIC[facility] Address: [address] [address] [place] [address] [facility] MEDICARE ADVANTAGE [facility] MEDIC[facility] Address: [address] [address] [place] [address] [facility]F [facility] MEDICARE Address: [address] [address] [place] [address] [facility] MDCR HMO REF [facility] MEDICARE Address: [address] [address] [place] [address] Advance Directives For more information, please contact: [phone] * Full Code (Latest Code Status on File) Date Activated Date Inactivated Comments 02/09/2022 11:40 AM 02/14/2022 10:36 PM Care Teams Muck Operator Relationship Specialty Start Date End Date Delbert Ortega DO PCP - General Internal Medicine 12/17/21 Lin Nelson MD [address] [place] [address] Referring Physician Interventional Cardiology 01/22/22
--- OUTSIDE RECORDS SUMMARY | 2025-06-02 08:47 | XMS_ITS | Clinical Summary ---
Author Organization [facility] Address [facility] [place] [address] Care Team Providers Care Training Instructor Name Role Phone Unavailable Primary Care Provider [...] Td Vaccines ( 1 - Tdap) 1966 Pneumococcal Vaccine: 50+ Ye ars (1 of 1 - PCV) 1997 Zoster Vaccines (1 of 2) 1997 RSV Immunization or 60+ Years (1 - 1-dose 75+ series) 2022 COVID-19 Vaccine ( - 2023-2 5 season) 2024 Meningococcal B Vaccine Aged Out No l onger eligible based on patient's age to complete this topic Meningococcal Vaccine Aged Out No marco chris eligible based on patient's age to complete this topic RSV Immunizations Under 20 Months Aged Out No longer eligible based on patient's age to complete this topic
[2025-06-02 09:12] LABS: MALB Creatinine Ratio 26.9 mg/g (0-30)
[2025-06-02 09:38] LABS: Alanine Aminotransferase 43 U/L (6-50); Albumin Level 4.0 g/dL (3.5-5.1); Alkaline Phosphatase 79 U/L (38-126); Anion Gap 4 mmol/L (4-12); Aspartate Amino Transferase 41 U/L (17-59); Bilirubin,Total 1.2 mg/dL (0.2-1.3); Blood Urea Nitrogen 11 mg/dL (9-20); Calcium 8.8 mg/dL (8.4-10.2); Carbon Dioxide 25 mmol/L (22-30); Chloride 110 mmol/L (98-107); Cholesterol 147 mg/dL (0-200); Estimated Glomerular Filt Rate 53; Glucose 104 mg/dL (65-110); HDL Direct 43 mg/dL; Osmolality Calculated 287 mOsm/kg (285-295); Potassium 4.5 mmol/L (3.4-5.0); Sodium 139 mmol/L (137-145); Total Protein 6.8 g/dL (6.3-8.2); Triglycerides 126 mg/dL (<150)
[2025-06-02 09:39] LABS: Hemoglobin A1C 6.2 % (<5.7)
== END 2025-06-02 08:45 | disposition home or self-care (01) ==
LOC: CHSLAB 08:45
PROVIDERS: PCP Nurse Practitioner Family; Visit Provider Nurse Practitioner Family
DX: I10 Essential (primary) hypertension (principal); Z86.69 Personal history of other diseases of the nervous system and sense organs; E11.9 Type 2 diabetes mellitus without complications
CPT/HCPCS: 36415; 80053; 80061; 82043; 83036